=== PATIENT | male | born 1950 | race Two or more races ===

== ENCOUNTER → 2016-08-24 | Outpatient (CLI) | payer MEDICARE ==
--- NOTE | ~2016-08-24 | ESTC ---
Cardiac Perfusion Imaging Demographics Patient Name SWETHA Yeager Gender Male Patient Number [id number] Race Unknown Visit Number [id number] Ethnicity Corporate ID Room Number Accession Number [id number] Height 73 inches Date of 1950 Weight 165 pounds Isac Arnold MD Interpreting Isac Arnold Date of study 08/24/2016 Physician Supervising MD/MLP Isac Arnold NM Technologist MD Ordering Physician Isac Arnold Stress MD medical instrument technician Stress ECG Reading Isac Arnold Nurse Fior Braden Physician production or plant engineer Procedure Type: Nuclear Stress Test:Exercise Procedure Start time: 08/24/2016 00:00 Indications: Work Clearance. Risk Factors The patient risk factors include:Current/Recent(w/in 1 year) tobacco use and prior [place] . Conclusions Summary Perfusion Images: The overall quality of the study is good. Left ventricular cavity is noted to be normal on the stress and normal on the rest images. There is no evidence of abnormal lung activity. The right ventricle is not visualized an cannot be assessed. Impression ECG portion of exercise stress test is clinically negative for ischemia by diagnostic criteria. Patient walked for 5:44 minutes and achived 7 METS. Test terminated due to CROUCH/fatigue and patient reached 105% of MPHR. Myocardial perfusion imaging is normal. Overall left ventricular systolic function was normal without regional wall motion abnormalities. Calculated LVEF is 67% and TID ratio is 1.08. Stress Protocols Resting ECG Normal sinus rhythm. Pre-stress physical exam: s1 s2, rrr clear lungs Predicted HR: 153 bpm ECG Findings No ECG changes suggestive of ischemia. Arrhythmias No rhythm abnormality. Stress Interpretation Appropriate hemodynamic response to exercise. No significant ST-T wave changes with exercise. EKG portion is negative for ischemia by diagnostic criteria. The Velázquez Treadmill score was 6 .This corresponds to a low risk stress test. Imaging Results Summed scores - Summed stress score: 10 - Summed rest score: 8 - Summed difference score: 2 Stress ejection Ejection fraction:67 % EDV :86 ml ESV :28 ml Stroke volume :58 ml LV mass :136 gr Imaging Protocols Rest Stress Isotope:Tc99m Sestamibi IV Isotope: Tc99m Sestamibi IV Isotope dose:11.4 mCi Isotope dose:37 mCi Date:08/24/2016 07:08 Date:08/24/2016 08:30 Technique: SPECT Technique: Gated Supine SPECT Supine Scan Time:45-60 minutes post Scan Time:45-60 minutes post injection injection Medical History Admission Data Admission date: 08/24/2016 Admission Time: 06:43 Hospital Status: Outpatient. Signatures dtt: JUVENTINO VIDAL dtd: 08/24/16 0000 Physician Self Edit
== END | disposition disaster alternative care site (69) ==
LOC: GRAD 06:43
DX: Z02.4 Encounter for examination for driving license (principal)
CPT/HCPCS: A9500